=== PATIENT | female | born 2000 | race Caucasian/White ===

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

== ENCOUNTER 2021-04-10 23:14 | Emergency (ER) | payer OTHER ==
[2021-04-11 00:03] VITALS: BP 100/61; PULSE 81; TEMP 98.7; BMI 23.3
[2021-04-11] MEDS ORDERED: SILVER SULFADIAZINE 1% TOP CREAM 50 GM JAR TP ONE ×2 (00:53→01:00)
== END 2021-04-11 01:34 | disposition home or self-care (01) ==
LOC: JER 23:14
DX: T25.122A Burn of first degree of left foot, initial encounter (principal); T23.102A Burn of first degree of left hand, unspecified site, initial encounter; T25.221A Burn of second degree of right foot, initial encounter
CPT/HCPCS: 99283-25

== ENCOUNTER 2022-03-18 12:13 | Emergency (ER) | payer OTHER ==
[2022-03-18 12:29] VITALS: BP 97/63; PULSE 94; TEMP 98.4; BMI 21.9
[2022-03-18] MEDS ORDERED: KETOROLAC TROMETHAMINE 30 MG/1 ML VIAL IM ONE (14:09)
[2022-03-18] MEDS ORDERED: diazePAM 5 MG TABLET PO ONE (14:09)
[2022-03-18] MEDS ORDERED: LIDOCAINE 5% TOPICAL PATCH TP ONE ×2 (14:09→14:11)
[2022-03-18] MEDS ORDERED: LIDOCAINE 5% TOPICAL PATCH ONE (14:17)
[2022-03-18] MEDS ORDERED: KETOROLAC TROMETHAMINE 30 MG/1 ML VIAL ONE (14:17)
[2022-03-18] MEDS ORDERED: diazePAM 5 MG TABLET ONE (14:17)
[2022-03-18] MEDS ORDERED: LIDOCAINE PATCH REMOVAL MC SCH (22:00)
== END 2022-03-18 16:05 | disposition home or self-care (01) ==
LOC: JERFT 12:13
PROC: 3E0233Z Introduction of Anti-inflammatory into Muscle, Percutaneous Approach (ICD-10-PCS; principal; 2022-03-18)
DX: S80.00XA Contusion of unspecified knee, initial encounter (principal); S53.401A Unspecified sprain of right elbow, initial encounter; V49.40XA Driver injured in collision with unspecified motor vehicles in traffic accident, initial encounter
CPT/HCPCS: 72050-TC-FY; 73070-TC-RT-FY; 73562-TC-LT-FY; 73562-TC-RT-FY; 99285-25